=== PATIENT | male | born 1975 | race African-American/Black ===

== ENCOUNTER 2016-09-08 11:44 | Emergency (ER) ==
[2016-09-08 11:55] VITALS: BP 136/81; TEMP 98; BMI 20.5
== END 2016-09-08 12:25 | disposition left against medical advice (07) ==
LOC: ED 11:44
DX: R11.2 Nausea with vomiting, unspecified (principal)
CPT/HCPCS: 99281

== ENCOUNTER 2017-04-08 11:35 | Emergency (ER) ==
[2017-04-08 11:40] VITALS: BP 131/81; TEMP 98.4; BMI 25.0
[2017-04-08] MEDS ORDERED: ZOFRAN 4 MG/2 ML IVP STA (12:16)
[2017-04-08 12:25] LABS: BASOPHILS # (AUTO) 0.1 K/uL (0-0.2); BASOPHILS % (AUTO) 0.7 % (0.0-3.0); EOSINOPHILS # (AUTO) 0.1 K/ul (0.0-0.7); EOSINOPHILS % (AUTO) 0.9 % (0.0-7.0); HEMATOCRIT 44.2 % (42.0-52.0); HEMOGLOBIN 15.2 g/dl (14.0-18.0); IMMATURE GRANULOCYTE % (AUTO) 0.3 % (0.0-5.0); LYMPHOCYTES # (AUTO) 1.8 K/uL (0.60-3.4); LYMPHOCYTES % (AUTO) 25.6 (10.0-50.0); MEAN CORPUSCULAR HEMOGLOBIN 28.8 pg (27.0-31.0); MEAN CORPUSCULAR HGB CONC 34.4 (31.8-35.4); MEAN CORPUSCULAR VOLUME 83.9 fl (80.0-94.0); MONOCYTES # (AUTO) 0.5 K/uL (0.4-2.0); MONOCYTES % (AUTO) 7.5 (0-10); NEUTROPHILS # (AUTO) 4.5 K/ul (2.0-6.9); PLATELET COUNT 327 10^3/uL (140-440); RED BLOOD COUNT 5.27 10^6/ul (4.70-6.10); WHITE BLOOD COUNT 6.91 K/ul (4.2-10.2)
[2017-04-08 13:02] LABS: ALANINE AMINOTRANSFERASE 14 U/L (12-78); ALBUMIN 4.3 g/dL (3.4-5.0); ALBUMIN/GLOBULIN RATIO 1.34; ALKALINE PHOSPHATASE 41 U/L (50-136); ASPARTATE AMINO TRANSFERASE 18 U/L (15-37); BILIRUBIN,TOTAL 0.98 mg/dL (0.00-1.20); BLOOD UREA NITROGEN 11 mg/dL (7-18); CALCIUM 9.8 mg/dL (8.2-10.2); CARBON DIOXIDE 23 mmol/L (21-32); CHLORIDE 102 mmol/L (98-107); CREATINE KINASE 339 U/L; GLUCOSE 88 mg/dL (70-100); SODIUM 138 mmol/L (136-145); TOTAL PROTEIN 7.5 g/dL (6.4-8.2)
[2017-04-08 13:05] LABS: CREATINE KINASE MB 1.5 ng/ml (0.0-3.6)
--- NOTE | 2017-04-08 13:57 | CT ---
EXAM: CT of the head without contrast History: Dizziness. Technique: Multiplanar CT images through the head were obtained without the administration of IV co ntrast Findings: The visualized paranasal sinuses and mastoid air cells are clear in general. No acute ca lvarial abnormalities. Intracranially the ventricular and cisternal spaces are normal in size, shape and configuration for a patient of this age. No dominant mass or midline shift. No hydrocephalous. No acute intracrania l hemorrhage or abnormal extraaxial fluid collections. Impression: No acute intracranial process.
--- NOTE | 2017-04-08 14:01 | CT ---
EXAM: CT orbits with and without contrast. HISTORY: Left orbital firmness. Blurry vision. Dizziness. COMPARISON: None available. TECHNIQUE: Multiple axial images of the orbits were obtained prior to and following intravenous adm inistration of 75 mL of Omnipaque-300, low osmolar. Images were reformatted in the sagittal and cor onal planes. FINDINGS: No acute facial fracture identified. Suspect old right orbital floor and lamina papyrace a fractures. The globes and intraorbital structures are intact. No intraorbital edema or fluid col lections noted. No periorbital edema identified. There is mild mucosal thickening in both maxillar y sinuses and the left frontal sinus. Mastoid air cells are clear. IMPRESSION: 1. No orbital abnormality. 2. Mild paranasal sinus mucosal disease. 3. Old right facial fractures.
[2017-04-08 14:26] LABS: BILIRUBIN,URINE Negative (NEGATIVE); KETONES,URINE 1+ (NEGATIVE); LEUKOCYTE ESTERASE ,URINE Negative (NEGATIVE); NITRITE,URINE Negative (NEGATIVE); PROTEIN,URINE Trace (NEGATIVE); URINE, BLOOD Trace-intact (NEGATIVE)
[2017-04-08 14:29] LABS: ADD URINE MICROSCOPIC YES
[2017-04-08 14:35] LABS: COCAIN SCREEN,URINE NEGATIVE (NEGATIVE)
--- NOTE | 2017-04-08 14:50 | ED.PDOC ---
General ED Provider: Dr. WAYNE KIM Chief Complaint: Dizziness Stated Complaint: dizziness Time Seen by Physician: 11:38 (dizziness seen with RN at all times ) Mode of Arrival: Walk-In Information Source: Patient, Family Exam Limitations: No limitations Nursing and Triage Documentation Reviewed and Agree: Yes Neurological Complaint Exam - Dizziness Complaint/Exam Last Known Well: 14days Onset: Gradual Duration: 14 days of dizziness no motor ensory deficits Symptoms Are: Resolved Timing: Intermittent Episodes Lasting: Weeks Initial Severity: Mild Current Severity: Mild Character: Reports: Dizzy Aggravating: Reports: None Alleviating: Reports: None Associated Signs and Symptoms: Denies: Nausea, Vomiting, Diaphoresis, Tinnitus, Chest pain, Short of air, Palpitations, Unsteady gait, GI blood loss, Visual changes, Decreased oral intake, Change in medication, Change in diet, OTC meds, Loss of balance Cardiac Risk Factors: Reports: None CVA Risk Factors: Reports: None Related Surgical History: Reports: None JVD Present: No Carotid Bruit Present: No Rectal Heme Positive: No Glascow Coma Scale (see protocol): 15 Nystagmus Present: No Gag Reflex Present: No Meningeal Signs Positive: No Focal Weakness: Present: None Focal Sensory Loss: Present: None Gait: Normal Differential Diagnoses: Dysrhythmia, Hypovolemia, Metabolic abnormalities, Vasovagal reaction Quality Indicators for Cardiac Chest Pain: EKG in 10min. Quality Indicators for AMI: EKG in 10min. Quality Indicator For Non-Traumatic Chest Pain/Syncope: EKG Performed Review of Systems - Review Of Systems Constitutional: Reports: No symptoms Eyes: Reports: No symptoms Ears, Nose, Mouth, Throat: Reports: No symptoms Respiratory: Reports: No symptoms Cardiac: Reports: No symptoms GI: Reports: No symptoms : Reports: No symptoms Musculoskeletal: Reports: No symptoms Skin: Reports: No symptoms Neurological: Reports: Other (dizziness) Endocrine: Reports: No symptoms Hematologic/Lymphatic: Reports: No symptoms All Other Systems: Reviewed and Negative Past Medical History - Past Medical History Previously Healthy: Yes Endocrine: Reports: None Cardiovascular: Reports: None Respiratory: Reports: None Hematological: Reports: None Gastrointestinal: Reports: None Genitourinary: Reports: None Neuro/Psych: Reports: None Musculoskeletal: Reports: None Cancer: Reports: None - Surgical History General Surgical History: Reports: None - Family History Family History: Reports: None - Social History Smoking Status: Current every day smoker, Light tobacco smoker Hx Substance Use: Yes (MARIJUANA) Alcohol Screening: None Physical Exam - Physical Exam Appearance: Well-appearing, No pain distress, Well-nourished Eyes: ROMMEL, EOMI, Conjunctiva clear (left eye firmer on palpation and slightly more proptosis noted as compared to right visio not affected ) ENT: Ears normal, Nose normal, Oropharynx normal Respiratory: Airway patent, Breath sounds clear, Breath sounds equal, Respirations nonlabored Cardiovascular: RRR, Pulses normal, No rub, No murmur GI/: Soft, Nontender, No masses, Bowel sounds normal, No Organomegaly Musculoskeletal: Normal strength, ROM intact, No edema, No calf tenderness Skin: Warm, Dry, Normal color Neurological: Sensation intact, Motor intact, Reflexes intact, Cranial nerves intact, Alert, Oriented Psychiatric: Affect appropriate, Mood appropriate Physician Notification - Case Discussed Physician Notified: DASHAWN KING Time of Notification: 14:55 (SINCE HIS CT ORBIT AND BRAIN ARE WNL NO NEED TO BE SEEN BY HIM AT THIS TIME . PT ALSO REFUSED I.O.P CHECK RISKS DISCUSSED REFUSED LU[facility] AT [facility] STILL REFUSED ) Critical Care Note - Critical Care Note Total Time (mins): 0 Course - Course Hematology/Chemistry: 04/08/17 11:40 04/08/17 12:20 Orders, Labs, Meds: Lab Review 04/08/17 04/08/17 04/08/17 11:40 12:20 13:20 WBC 6.91 RBC 5.27 Hgb 15.2 Hct 44.2 MCV 83.9 MCH 28.8 MCHC 34.4 RDW Coeff of Ron 12.2 Plt Count 327 Immature Gran % (Auto) 0.3 Neut % (Auto) 65.0 Lymph % (Auto) 25.6 [place] % (Auto) 7.5 Eos % (Auto) 0.9 Baso % (Auto) 0.7 Immature Gran # (Auto) 0.0 Neut # 4.5 Lymph # 1.8 [place] # 0.5 Eos # 0.1 Baso # 0.1 Sodium 138 Potassium 4.0 Chloride 102 Carbon Dioxide 23 Anion Gap 17.0 BUN 11 Creatinine 1.00 Estimated GFR (MDRD) 100.00 BUN/Creatinine Ratio 11.00 Glucose 88 Calcium 9.8 Total Bilirubin 0.98 AST 18 ALT 14 Alkaline Phosphatase 41 L Total Creatine Kinase 339 CK-MB (CK-2) 1.5 CK-MB (CK-2) % 0.36527 Troponin I < 0.0100 Total Protein 7.5 Albumin 4.3 Globulin 3.2 Albumin/Globulin Ratio 1.34 TSH 0.502 Free T4 1.09 Urine Color Urine Clarity Urine pH Ur Specific [place] Urine Protein Urine Glucose (UA) Urine Ketones Urine Blood Urine Nitrite Urine Bilirubin Urine Urobilinogen Ur Leukocyte Esterase Urine Microscopic RBC Urine Microscopic WBC Ur Squamous Epith Cells Urine Mucus Urine Opiates Screen Ur Oxycodone Screen Urine Methadone Screen Ur Propoxyphene Screen Ur Barbiturates Screen U Tricyclic Antidepress Ur Phencyclidine Scrn Ur Amphetamine Screen U Methamphetamines Scrn U Benzodiazepines Scrn Urine Cocaine Screen U Cannabinoids Screen 04/08/17 14:11 WBC RBC Hgb Hct MCV MCH MCHC RDW Coeff of Ron Plt Count Immature Gran % (Auto) Neut % (Auto) Lymph % (Auto) [place] % (Auto) Eos % (Auto) Baso % (Auto) Immature Gran # (Auto) Neut # Lymph # [place] # Eos # Baso # Sodium Potassium Chloride Carbon Dioxide Anion Gap BUN Creatinine Estimated GFR (MDRD) BUN/Creatinine Ratio Glucose Calcium Total Bilirubin AST ALT Alkaline Phosphatase Total Creatine Kinase CK-MB (CK-2) CK-MB (CK-2) % Troponin I Total Protein Albumin Globulin Albumin/Globulin Ratio TSH Free T4 Urine Color Dark Urine Clarity Clear Urine pH 7.0 Ur Specific [place] 1.015 Urine Protein Trace Urine Glucose (UA) Negative Urine Ketones 1+ Urine Blood Trace-intact Urine Nitrite Negative Urine Bilirubin Negative Urine Urobilinogen 1.0 Ur Leukocyte Esterase Negative Urine Microscopic RBC 5-10 Urine Microscopic WBC 0-2 Ur Squamous Epith Cells Not present Urine Mucus 1+ Urine Opiates Screen Negative Ur Oxycodone Screen Negative Urine Methadone Screen Negative Ur Propoxyphene Screen Negative Ur Barbiturates Screen Negative U Tricyclic Antidepress Negative Ur Phencyclidine Scrn Negative Ur Amphetamine Screen Negative U Methamphetamines Scrn Negative U Benzodiazepines Scrn Negative Urine Cocaine Screen Negative U Cannabinoids Screen Positive Orders Category Date Time Status EKG-(ED ONLY) Stat CARDIO 04/08/17 13:15 Completed NPO REMINDER: IMAGING ONCE CARE 04/08/17 12:10 Completed NPO REMINDER: IMAGING ONCE CARE 04/08/17 15:33 Completed CBC W/ AUTO DIFF Stat LAB 04/08/17 11:40 Completed COMPREHENSIVE METABOLIC PANEL Stat LAB 04/08/17 12:20 Completed CREATINE KINASE Stat LAB 04/08/17 12:20 Completed DRUG SCREEN (RAPID FOR ED) [DRUG SCREEN, URINE, RAPID] LAB 04/08/17 14:11 Completed Stat FREE T4 (FREE THYROXINE) Stat LAB 04/08/17 13:20 Completed THYROID STIMULATING HORMONE Stat LAB 04/08/17 12:20 Completed TROPONIN I Stat LAB 04/08/17 12:20 Completed URINALYSIS C & S IF INDICATED Stat LAB 04/08/17 14:11 Completed Ondansetron HCl/Pf [Zofran 4 mg/2 ml] MEDS 04/08/17 12:16 Discontinued 4 mg IVP ONCE STA Sodium Chloride 0.9% [Sodium Chloride] 1,000 ml MEDS 04/08/17 15:[address] HEAD W/O CONTRAST Stat RADS 04/08/17 12:[address] IAC/ORBIT/P.KIM W/WO CONTR Stat RADS 04/08/17 12:09 Completed CTA ANGIO NECK Stat RADS 04/08/17 15:32 Completed Medications Discontinued Medications Generic Name Dose Route Start Last Admin Trade Name Freq PRN Reason Stop Dose Admin Sodium Chloride 1,000 mls @ 1,000 mls/hr 04/08/17 15:10 04/08/17 15:37 Sodium Chloride IV 04/08/17 16:09 1,000 mls/hr BOLUS STA Administration Ondansetron HCl 4 mg 04/08/17 12:16 04/08/17 12:31 Zofran 4 Mg/2 Ml IVP 04/08/17 12:17 4 mg ONCE STA Administration Vital Signs: Temp Pulse Resp BP Pulse Ox 04/08/17 11:36 98.4 F 63 20 131/81 98 Departure - Departure Time of Disposition: 16:56 Disposition: HOME SELF-CARE Discharge Problem: Dizziness Instructions: Dizziness (ED), Lightheadedness (ED), Vertigo (ED) Condition: Good Pt referred to PMD for follow-up: Yes Additional Instructions: Please call your Family Physician as soon as possible to schedule a follow-up appointment. Allergies/Adverse Reactions: Allergies No Known Allergies Allergy (Verified 04/08/17 11:43) Home Medications: Ambulatory Orders 1 [No Reported Medications] 05/17/15
[2017-04-08] MEDS ORDERED: SODIUM CHLORIDE 1,000 ML IV STA (15:10)
--- NOTE | 2017-04-08 16:37 | CT ---
EXAM: CTA of the neck with and without contrast History: Dizziness. Comparison: Head CT 04/08/2017 Technique: Multiplanar CT images through the soft tissue neck were obtained with and without the ad ministration of IV contrast. MIP images and 3-D reconstructions were also acquired. Findings: The visualized lung apices are free of consolidation. No acute osseous abnormalities. Ol d right medial orbital wall fracture. Minimal mucosal thickening of the right maxillary sinus. [place] air cells are clear. Surrounding soft tissues demonstrate no acute findings. The visualized intracranial contents demons trate no acute abnormality. No discrete thyroid nodules identified by CT. The bilateral internal carotid arteries are patent without significant disease. The bilateral commo n carotid arteries are patent without significant disease. The bilateral vertebral arteries are pat ent without significant disease. Impression: Minimal mucosal thickening of the right maxillary sinus. Old right medial orbital wall fracture. The examination is otherwise normal.
== END 2017-04-08 17:04 | disposition home or self-care (01) ==
LOC: ED 11:35
DX: R42 Dizziness and giddiness (principal); F17.210 Nicotine dependence, cigarettes, uncomplicated
CPT/HCPCS: 36415; 80053; 80306; 81001; 82550; 82553; 84439; 84443; 84484; 85025; 93005; 93010; 96361; 96374; 99284

== ENCOUNTER 2017-04-14 09:24 | Emergency (ER) ==
[2017-04-14 09:27] VITALS: BP 161/82; TEMP 97.6; BMI 24.3
[2017-04-14 10:00] LABS: BASOPHILS % (AUTO) 0.6 % (0.0-3.0); EOSINOPHILS # (AUTO) 0.1 K/ul (0.0-0.7); EOSINOPHILS % (AUTO) 0.8 % (0.0-7.0); HEMATOCRIT 44.8 % (42.0-52.0); HEMOGLOBIN 15.4 g/dl (14.0-18.0); IMMATURE GRANULOCYTE % (AUTO) 0.5 % (0.0-5.0); LYMPHOCYTES # (AUTO) 1.5 K/uL (0.60-3.4); LYMPHOCYTES % (AUTO) 22.8 (10.0-50.0); MEAN CORPUSCULAR HEMOGLOBIN 28.4 pg (27.0-31.0); MEAN CORPUSCULAR HGB CONC 34.4 (31.8-35.4); MEAN CORPUSCULAR VOLUME 82.7 fl (80.0-94.0); MONOCYTES # (AUTO) 0.6 K/uL (0.4-2.0); MONOCYTES % (AUTO) 9.5 (0-10); NEUTROPHILS # (AUTO) 4.3 K/ul (2.0-6.9); NEUTROPHILS % (AUTO) 65.8; PLATELET COUNT 328 10^3/uL (140-440); RED BLOOD COUNT 5.42 10^6/ul (4.70-6.10)
--- NOTE | 2017-04-14 10:09 | DI ---
EXAM: Chest two view, frontal and lateral views. HISTORY: Cough. COMPARISON: 05/17/2015. FINDINGS: The heart size is normal. There is no pulmonary vascular congestion. The lungs are antonia r. No pleural effusion or pneumothorax is seen. No acute osseous abnormality identified. Since prior study, there has been no significant interval change. IMPRESSION: No acute cardiopulmonary process.
[2017-04-14 10:31] LABS: ALBUMIN 4.3 g/dL (3.4-5.0); ALBUMIN/GLOBULIN RATIO 1.34; ANION GAP 12.1; BILIRUBIN,TOTAL 0.96 mg/dL (0.00-1.20); BUN/CREATININE RATIO 8.57; CALCIUM 9.8 mg/dL (8.2-10.2); CREATININE 1.05 mg/dL (0.60-1.10); POTASSIUM 4.1 mmol/L (3.5-5.1); TOTAL PROTEIN 7.5 g/dL (6.4-8.2); TROPONIN I 0.015 ng/ml (0.0000-0.4000)
[2017-04-14 10:32] LABS: CREATINE KINASE MB 1.2 ng/ml (0.0-3.6)
--- NOTE | 2017-04-14 10:37 | ED.PDOC ---
General ED Provider: Dr. WAYNE KIM Chief Complaint: Syncope Stated Complaint: syncope Time Seen by Physician: 09:30 Mode of Arrival: Walk-In Information Source: Patient Exam Limitations: No limitations Nursing and Triage Documentation Reviewed and Agree: Yes Neurological Complaint Exam - Syncope/Near Syncope Complaint/Exam Onset/Duration: today seconds arrived with no defcit Symptoms Are: Still present Number of Episodes: 1 Frequency of Episodes: 1 Episodes Witnessed: Yes Loss of Consciousness: No Associated Head Trauma: No Activity at Onset: Unknown Aggravating: None Alleviating: Reports: None Associated Signs and Symptoms: Denies: Pain, Decreased oral intake, Vomiting, Diarrhea, GI blood loss, Short of air, Chest pain, Palpitations, Diaphoresis, Lightheadedness, Dizziness, Weakness, AMS, Numbness, Headache, Seizure, Remote head trauma, Recent head trauma Related History: Similar episode Cardiac Risk Factors: Reports: None GI Bleed Risk Factors: Reports: None Dysrhythmia Risk Factors: Reports: None Related Surgical History: Reports: None JVD Present: No Carotid Bruit Present: No Glascow Coma Scale (see protocol): 15 Nystagmus Present: No Gag Reflex Present: No Meningeal Signs Positive: No Focal Weakness: Present: None Focal Sensory Loss: Present: None Gait: Normal Babinski Sign: Negative Right, Negative Left Differential Diagnoses: Hypoglycemia, Metabolic Reaction, Vasovagal Episode Quality Indicators for Cardiac Chest Pain: EKG in 10min. Quality Indicator For Non-Traumatic Chest Pain/Syncope: EKG Performed Quality Indicators for AMI: EKG in 10min. Review of Systems - Review Of Systems Constitutional: Reports: No symptoms Eyes: Reports: No symptoms Ears, Nose, Mouth, Throat: Reports: No symptoms Respiratory: Reports: No symptoms Cardiac: Reports: No symptoms GI: Reports: No symptoms : Reports: No symptoms Musculoskeletal: Reports: No symptoms Skin: Reports: No symptoms Neurological: Reports: No symptoms Endocrine: Reports: No symptoms Hematologic/Lymphatic: Reports: No symptoms All Other Systems: Reviewed and Negative Past Medical History - Past Medical History Previously Healthy: Yes Endocrine: Reports: None Cardiovascular: Reports: None Respiratory: Reports: None Hematological: Reports: None Gastrointestinal: Reports: None Genitourinary: Reports: None Neuro/Psych: Reports: None Musculoskeletal: Reports: None Cancer: Reports: None - Surgical History General Surgical History: Reports: None - Family History Family History: Reports: None - Social History Smoking Status: Current every day smoker, Light tobacco smoker Hx Substance Use: Yes (MARIJUANA) Alcohol Screening: None Physical Exam - Physical Exam Appearance: Well-appearing, No pain distress, Well-nourished Eyes: ROMMEL, EOMI, Conjunctiva clear ENT: Ears normal, Nose normal, Oropharynx normal Respiratory: Airway patent, Breath sounds clear, Breath sounds equal, Respirations nonlabored Cardiovascular: RRR, Pulses normal, No rub, No murmur GI/: Soft, Nontender, No masses, Bowel sounds normal, No Organomegaly Musculoskeletal: Normal strength, ROM intact, No edema, No calf tenderness Skin: Warm, Dry, Normal color Neurological: Sensation intact, Motor intact, Reflexes intact, Cranial nerves intact, Alert, Oriented Psychiatric: Affect appropriate, Mood appropriate Critical Care Note - Critical Care Note Total Time (mins): 0 Course - Course Hematology/Chemistry: 04/14/17 09:45 04/14/17 09:45 Orders, Labs, Meds: Lab Review 04/14/17 09:45 WBC 6.50 RBC 5.42 Hgb 15.4 Hct 44.8 MCV 82.7 MCH 28.4 MCHC 34.4 RDW Coeff of Ron 11.9 Plt Count 328 Immature Gran % (Auto) 0.5 Neut % (Auto) 65.8 Lymph % (Auto) 22.8 [place] % (Auto) 9.5 Eos % (Auto) 0.8 Baso % (Auto) 0.6 Immature Gran # (Auto) 0.0 Neut # 4.3 Lymph # 1.5 [place] # 0.6 Eos # 0.1 Baso # 0.0 Sodium 137 Potassium 4.1 Chloride 101 Carbon Dioxide 28 Anion Gap 12.1 BUN 9 Creatinine 1.05 Estimated GFR (MDRD) 95.00 BUN/Creatinine Ratio 8.57 Glucose 97 Calcium 9.8 Total Bilirubin 0.96 AST 14 L ALT 11 L Alkaline Phosphatase 41 L Total Creatine Kinase 228 CK-MB (CK-2) 1.2 CK-MB (CK-2) % 0.76734 Troponin I 0.0150 Total Protein 7.5 Albumin 4.3 Globulin 3.2 Albumin/Globulin Ratio 1.34 Orders Category Date Time Status CBC W/ AUTO DIFF Stat LAB 04/14/17 09:45 Completed COMPREHENSIVE METABOLIC PANEL Stat LAB 04/14/17 09:45 Completed CREATINE KINASE Stat LAB 04/14/17 09:45 Completed TROPONIN I Stat LAB 04/14/17 09:45 Completed URINALYSIS C & S IF INDICATED Stat LAB 04/14/17 10:00 Received URINE DRUG SCREEN (RAPID FOR ED) [DRUG SCREEN, URINE, LAB 04/14/17 10:00 Received RAPID] Stat CHEST, 2 VIEWS PA & LAT Stat RADS 04/14/17 09:[address] ABDOMEN/PELVIS WO CONTRAST Stat RADS 04/14/17 09:42 Taken Vital Signs: Temp Pulse Resp BP Pulse Ox 04/14/17 09:24 97.6 F 74 18 161/82 H 98 Departure - Departure Time of Disposition: 10:37 Disposition: HOME SELF-CARE Discharge Problem: Syncope Instructions: Syncope (ED) Condition: Good Pt referred to PMD for follow-up: Yes Additional Instructions: Please call your Family Physician as soon as possible to schedule a follow-up appointment. you must follow up with [facility] Allergies/Adverse Reactions: Allergies No Known Allergies Allergy (Verified 04/14/17 09:27) Home Medications: Ambulatory Orders 1 [No Reported Medications] 05/17/15 Disposition Discussed With: Patient
--- NOTE | 2017-04-14 10:42 | CT ---
Exam: CT of the abdomen pelvis without intravenous contrast. Comparison: 05/17/2015. Reason for exam: Pain. FINDINGS: No pleural effusion, or focal consolidation in the partially imaged lung bases. Lack of intravenous contrast limits evaluation. The liver, gallbladder, spleen, pancreas, and adrenal glands appear grossly unremarkable within limi tations of a noncontrasted study.. Small cystic structures within the liver are too small to be accurately characterized. No hydronephrosis, nephrolithiasis, hydroureter is seen in either kidney. No inflammatory changes are seen within the abdominal or pelvic fat. There is a tiny only fat containing periumbilical hernia. No focal small bowel dilatation or transi tion point. The imaged osseous structures appear grossly unremarkable. The appendix appears grossly unremarkable. No suspicious appearing osteoblastic or osteolytic lesions. Scattered diverticular disease is seen w ithin the descending and rectosigmoid colon without surrounding inflammatory change. Impression: 1. No acute imaging findings are seen within the abdomen or pelvis. 2. Diverticulosis
[2017-04-14 10:46] LABS: COCAIN SCREEN,URINE NEGATIVE (NEGATIVE)
[2017-04-14 11:12] LABS: BILIRUBIN,URINE 1+ (NEGATIVE); KETONES,URINE 1+ (NEGATIVE); LEUKOCYTE ESTERASE ,URINE Negative (NEGATIVE); NITRITE,URINE Negative (NEGATIVE); PROTEIN,URINE 1+ (NEGATIVE); URINE, BLOOD 2+ (NEGATIVE)
[2017-04-14 11:13] LABS: ADD URINE MICROSCOPIC YES
== END 2017-04-14 11:20 | disposition home or self-care (01) ==
LOC: ED 09:24
DX: R55 Syncope and collapse (principal); F17.210 Nicotine dependence, cigarettes, uncomplicated
CPT/HCPCS: 36415; 80053; 80306; 81001; 82550; 82553; 84484; 85025; 93005; 93010; 99283

== ENCOUNTER 2018-11-01 14:13 | Emergency (ER) ==
[2018-11-01 14:18] VITALS: BP 135/75; TEMP 100.6; BMI 22.5
--- NOTE | 2018-11-01 14:28 | ED.PDOC ---
General ED Provider: Dr. LIDIA VELASQUEZ Chief Complaint: Respiratory Complaint Stated Complaint: Sore throat and sinus congestion. Onset earlier in week. with recent dx Flu A Time Seen by Physician: 14:20 Mode of Arrival: Walk-In Information Source: Patient, Family Exam Limitations: No limitations Nursing and Triage Documentation Reviewed and Agree: Yes Does patient meet sepsis criteria?: No System Inflammatory Response Syndrome: Not Applicable Sepsis Protocol: For patient's 13 years and over: Temp is 96.8 and below OR 101 and greater Pulse >90 BPM Resp >20/minute Acutely Altered Mental Status Are patient's symptoms suggestive of a new infection, such as: -Pneumonia -Skin, Soft Tissue -Endocarditis -UTI -Bone, Joint Infection -Implantable Device -Acute Abdominal Infection -Wound Infection -Meningitis -Blood Stream Catheter Infection -Unknown Respiratory Complaint Exam - Respiratory Complaint/Exam Onset/Duration: 2 days Symptoms Are: Still present Timing: Constant Initial Severity: Moderate Current Severity: Mild Character: Reports: Non-productive cough Aggravating: Reports: None Alleviating: Reports: None Associated Signs and Symptoms: Reports: Fever, Chills. Denies: Rapid breathing , Dyspnea, Chest pain, Pleuritic chest pain, Wheezing, Hemoptysis, Dizziness, Calf pain, Calf swelling, Edema, URI, Nasal congestion, Hoarseness, Sinus discomfort, Vomiting, Sore throat, Weight loss, Decreased oral intake, Increased thirst, Increased appetite, Increased urination Related History: Denies: Similar episode History of Healthcare-Acquired Pneumonia: No Related Surgical History: Reports: None Pulmonary Embolism Risk Factors: None Cardiac Risk Factors: Reports: None Pseudomonas Risk Factors: Reports: None Tuberculosis Risk Factors: Reports: None Status Asthmaticus Risk Factors: Reports: None Home Oxygen Use: No Recent Stress Test: No Recent Echo/LV Function: No Current Antibiotic Use: No Current Asthma Medication Use: No Respiratory Distress: None Inadequate Respiratory Effort: No Dysphagia Present: No Stridor Present: No JVD Present: No Accessory Muscle Use: No Retractions: Not Present Diminished Breath Sounds: No Sinus Tenderness: Maxillary Grunting Respirations: No Kussmaul Respirations: No Differential Diagnoses: URI, Influenza Review of Systems - Review Of Systems Constitutional: Reports: No symptoms Eyes: Reports: No symptoms, Pain Ears, Nose, Mouth, Throat: Reports: No symptoms, Throat pain Respiratory: Reports: No symptoms Cardiac: Reports: No symptoms GI: Reports: No symptoms : Reports: No symptoms Musculoskeletal: Reports: No symptoms Skin: Reports: No symptoms Neurological: Reports: No symptoms Endocrine: Reports: No symptoms Hematologic/Lymphatic: Reports: No symptoms All Other Systems: Reviewed and Negative Past Medical History - Past Medical History Previously Healthy: Yes Endocrine: Reports: None Cardiovascular: Reports: None Respiratory: Reports: None Hematological: Reports: None Gastrointestinal: Reports: None Genitourinary: Reports: None Neuro/Psych: Reports: None Musculoskeletal: Reports: None Cancer: Reports: None - Surgical History General Surgical History: Reports: None - Family History Family History: Reports: None - Social History Smoking Status: Current every day smoker, Light tobacco smoker Hx Substance Use: Yes (MARIJUANA) Alcohol Screening: None Physical Exam - Physical Exam Appearance: Well-appearing, No pain distress, Well-nourished, Thin Ill-appearing: Mild Pain Distress: Mild Eyes: ROMMEL, EOMI, Conjunctiva clear ENT: Ears normal, Nose normal, Oropharynx normal, Erythema (Pharynx) Neck: Supple Respiratory: Airway patent, Breath sounds clear, Breath sounds equal, Respirations nonlabored Cardiovascular: RRR, Pulses normal, No rub, No murmur GI/: Soft, Nontender, No masses, Bowel sounds normal, No Organomegaly Musculoskeletal: Normal strength, ROM intact, No edema, No calf tenderness Skin: Warm, Dry, Normal color Neurological: Sensation intact, Motor intact, Reflexes intact, Cranial nerves intact, Alert, Oriented Psychiatric: Affect appropriate, Mood appropriate Critical Care Note - Critical Care Note Total Time (mins): 0 Course - Course Orders, Labs, Meds: Lab Review 11/01/18 14:25 Influ A Molecular Assay Positive by naat H Influ B Molecular Assay Negative by naat Orders Category Date Time Status FLU A/B MOLECULAR Stat LAB 11/01/18 14:25 Completed RAPID STREP SCREEN [MOLECULAR GROUP A STREP] Stat LAB 11/01/18 14:25 Completed Vital Signs: Temp Pulse Resp BP Pulse Ox 11/01/18 14:13 100.6 F H 86 20 135/75 97 Departure - Departure Time of Disposition: 14:50 Disposition: HOME SELF-CARE Discharge Problem: Pharyngitis, Influenza A Instructions: Pharyngitis (ED) Condition: Good Pt referred to PMD for follow-up: Yes IPMP verified?: No Additional Instructions: Maintain adequate oral fluids intake Advance diet per tolerance Tylenol for pain or temp above 101 degrees Rest Off work next 3 days Take Tamiflu as directed( may cause nausea and vomiting-take with Food) See PCP in 5-8 days as needed for follow up Prescriptions: Oseltamivir Phosphate [Tamiflu] 75 mg PO Q12HR #10 capsule Allergies/Adverse Reactions: Allergies No Known Allergies Allergy (Verified 11/01/18 14:20) Home Medications: Ambulatory Orders Oseltamivir Phosphate [Tamiflu] 75 mg PO Q12HR #10 capsule 11/01/18 Disposition Discussed With: Patient
== END 2018-11-01 15:03 | disposition home or self-care (01) ==
LOC: ED 14:13
DX: J02.9 Acute pharyngitis, unspecified (principal); R09.81 Nasal congestion; R50.9 Fever, unspecified; Z72.0 Tobacco use; J11.1 Influenza due to unidentified influenza virus with other respiratory manifestations
CPT/HCPCS: 87502; 87651; 99283